=== PATIENT | male | born 1955 | race Caucasian/White ===

== ENCOUNTER 2016-06-17 09:37 | Observation (INO) | payer OTHER ==
[~2016-06-17] VITALS: Ht 188 cm; Wt 109.9 kg
[2016-06-17 11:10] LABS: HEMOGLOBIN 14.9 gm/dl (14.0-17.5); RED BLOOD COUNT 5.14 M/UL (4.20-5.50); WHITE BLOOD COUNT 4.3 K/UL (4.5-11.0)
[2016-06-17 11:24] LABS: BUN/CREATININE RATIO 14 (0-10)
[2016-06-17] MEDS ORDERED: CLARITIN10 M2 PO (19:15)
[2016-06-17] MEDS ORDERED: LISINOPRIL20 MG PO (19:15)
[2016-06-17] MEDS ORDERED: FISH OIL 1,0001 EACH PO (19:16)
[2016-06-17] MEDS ORDERED: MULTIVITAMINS1 EAC1 PO (19:17)
[2016-06-17] MEDS ORDERED: SAW PALMETTO PO (19:18)
[2016-06-17] MEDS ORDERED: GARLIC1 EAC1 PO (19:18)
[2016-06-17] MEDS ORDERED: ASPIR 8181 MG PO (19:18)
[2016-06-18 01:51] LABS: RED BLOOD COUNT 5.07 M/UL (4.20-5.50); WHITE BLOOD COUNT 3.8 K/UL (4.5-11.0)
[2016-06-18 02:10] LABS: BUN/CREATININE RATIO 13 (0-10)
[2016-06-18] MEDS ORDERED: TAMIFLU75 MG PO (14:06)
[2016-06-18] MEDS ORDERED: TYLENOL 325MG325 MG PO (14:07)
== END 2016-06-18 14:35 | disposition home or self-care (01) ==
LOC: ER1 09:37 → ZEROF 16:00 → MED SURG 4 19:24
PROVIDERS: Emergency Medicine; ADMIT Internal Medicine Infectious Disease
DX: J10.1 Influenza due to other identified influenza virus with other respiratory manifestations (principal); R55 Syncope and collapse; I10 Essential (primary) hypertension; D69.6 Thrombocytopenia, unspecified; I77.819 Aortic ectasia, unspecified site; Z79.82 Long term (current) use of aspirin; Z79.899 Other long term (current) drug therapy; Z82.49 Family history of ischemic heart disease and other diseases of the circulatory system; Z81.8 Family history of other mental and behavioral disorders
CPT/HCPCS: ECHO; 36415; 70450; 71010; 80048; 80053; 80061; 81001; 82550; 82553; 83605; 83690; 83735; 83880; 84484; 85025; 85610; 85730; 87040; 87081; 87086; 87880; 93005; 93306; 99285; G0378; J7030

== ENCOUNTER → 2016-08-08 | Outpatient (CLI) | payer OTHER ==
[~2016-08-08] MED LIST: ASPIR 8181 MG PO; CLARITIN10 M2 PO; FISH OIL 1,0001 EACH PO; GARLIC1 EAC1 PO; LISINOPRIL20 MG PO; MULTIVITAMINS1 EAC1 PO; SAW PALMETTO PO; TAMIFLU75 MG PO; TYLENOL 325MG325 MG PO
== END ==
LOC: HEART 5 07:36
DX: R55 Syncope and collapse (principal); R07.9 Chest pain, unspecified; I51.9 Heart disease, unspecified
CPT/HCPCS: 78452; A9502; J2785

== ENCOUNTER → 2016-08-14 | Outpatient (CLI) | payer OTHER | LOC: RT 11:53 | DX: R55 Syncope and collapse (principal) ==

== ENCOUNTER → 2020-09-09 | Outpatient (CLI) | payer OTHER | LOC: KOH-I 10:45 | DX: M48.061 Spinal stenosis, lumbar region without neurogenic claudication (principal); M51.26 Other intervertebral disc displacement, lumbar region; M43.16 Spondylolisthesis, lumbar region | CPT/HCPCS: 72148 ==

== ENCOUNTER → 2020-11-17 | Outpatient (CLI) | payer OTHER ==
[~2020-11-17] MED LIST changes: +ALL DAY PAIN R220 MG PO; +ALLERGY RELIEF10 M1 PO; +DULOXETINE HCL60 MG PO; +FISH-FLAX-BORA1 EACH PO; +HYDROCHLOROTHIA25 MG PO; -LISINOPRIL20 MG PO; +LISINOPRIL40 MG PO; +LOVASTATIN20 MG PO; +MAGNESIUM400 M2 PO; +METOPROLOL TART25 MG PO; +OMEPRAZOLE20 MG PO; +RA GLUCOSAMINE1 EAC6 PO; +ROBAXIN 750 MG750 MG PO; +SUPER MULTIVIT1 EACH PO; -TYLENOL 325MG325 MG PO; +TYLENOL EXTRA500 MG PO
[2020-11-17 09:58] LABS: HEMOGLOBIN 15.7 gm/dl (14.0-17.5); RED BLOOD COUNT 5.07 M/UL (4.20-5.50); WHITE BLOOD COUNT 5.1 K/UL (4.5-11.0)
[2020-11-17 10:12] LABS: BUN/CREATININE RATIO 20 (0-10)
== END ==
LOC: OPSV2 08:55 → EDSTATUS 09:00 → OPSV2 09:00
PROVIDERS: Orthopaedic Surgery
DX: Z01.818 Encounter for other preprocedural examination (principal); M48.061 Spinal stenosis, lumbar region without neurogenic claudication; I10 Essential (primary) hypertension; M54.16 Radiculopathy, lumbar region
CPT/HCPCS: 36415; 71046; 80048; 81001; 85025; 87081; 93005

== ENCOUNTER → 2020-11-23 | Outpatient (CLI) | payer OTHER | LOC: HEART 5 09:00 → ECHO 13:00 | DX: I20.9 Angina pectoris, unspecified (principal); R06.02 Shortness of breath; I08.3 Combined rheumatic disorders of mitral, aortic and tricuspid valves | CPT/HCPCS: ECHO; 78452; 93306; A9502; J2785 ==

== ENCOUNTER → 2020-12-15 | Outpatient (CLI) | payer OTHER | LOC: KOH-I 08:11 | DX: Z01.818 Encounter for other preprocedural examination (principal); M54.16 Radiculopathy, lumbar region; M54.17 Radiculopathy, lumbosacral region | CPT/HCPCS: 72131 ==

== ENCOUNTER → 2021-02-02 | Outpatient (CLI) | payer OTHER ==
[~2021-02-02] MED LIST changes: +CHELATED ZINC PO; +CRESTOR20 MG PO; +FLAXSEED1000 MG PO; +IBUPROFEN200 MG PO; +ISOSORBIDE MONO30 MG PO; +MAGNESIUM400 MG PO; +[UNRECOGNIZED DRUG - OTHER] PO
[2021-02-02 09:35] LABS: HEMOGLOBIN 15.5 gm/dl (14.0-17.5); RED BLOOD COUNT 5.17 M/UL (4.20-5.50); WHITE BLOOD COUNT 4.6 K/UL (4.5-11.0)
[2021-02-02 10:23] LABS: BUN/CREATININE RATIO 18 (0-10)
== END ==
LOC: OPSV2 08:00 → EDSTATUS 08:00 → OPSV2 08:17
PROVIDERS: Orthopaedic Surgery
DX: Z01.818 Encounter for other preprocedural examination (principal); M48.061 Spinal stenosis, lumbar region without neurogenic claudication; M47.816 Spondylosis without myelopathy or radiculopathy, lumbar region; I10 Essential (primary) hypertension; E78.00 Pure hypercholesterolemia, unspecified; Z87.891 Personal history of nicotine dependence
CPT/HCPCS: 36415; 71046; 80048; 81001; 85025

== ENCOUNTER 2021-02-15 07:25 | Inpatient (IN) | payer OTHER ==
[~2021-02-15] VITALS: Ht 188 cm; Wt 111.1 kg
[2021-02-15 14:20] LABS: RED BLOOD COUNT 4.89 M/UL (4.20-5.50); WHITE BLOOD COUNT 6.9 K/UL (4.5-11.0)
[2021-02-15 19:33] LABS: HEMOGLOBIN 13.1 gm/dl (14.0-17.5)
[2021-02-15 19:39] LABS: RED BLOOD COUNT 4.4 M/UL (4.20-5.50); WHITE BLOOD COUNT 16.3 K/UL (4.5-11.0)
[2021-02-15 20:00] LABS: BUN/CREATININE RATIO 19 (0-10)
[2021-02-15 23:10] LABS: HEMOGLOBIN 12.8 gm/dl (14.0-17.5); RED BLOOD COUNT 4.33 M/UL (4.20-5.50); WHITE BLOOD COUNT 13.2 K/UL (4.5-11.0)
[2021-02-15 23:31] LABS: BUN/CREATININE RATIO 22 (0-10)
[2021-02-16 06:15] LABS: HEMOGLOBIN 11.8 gm/dl (14.0-17.5); RED BLOOD COUNT 3.99 M/UL (4.20-5.50)
[2021-02-16 06:17] LABS: WHITE BLOOD COUNT 9.7 K/UL (4.5-11.0)
[2021-02-16 06:31] LABS: BUN/CREATININE RATIO 21 (0-10)
[2021-02-17 05:51] LABS: HEMOGLOBIN 11.7 gm/dl (14.0-17.5); RED BLOOD COUNT 3.95 M/UL (4.20-5.50); WHITE BLOOD COUNT 11.3 K/UL (4.5-11.0)
[2021-02-17 06:26] LABS: BUN/CREATININE RATIO 13 (0-10)
--- NOTE | 2021-02-18 19:37 | NUR ---
PT REFUSED TO SIT ON EDGE OF BED, SIT IN CHAIR, OR AMBULATE WITH NURSING STAFF. ATTEMPT X2.
[2021-02-20 10:26] LABS: HEMOGLOBIN 12.4 gm/dl (14.0-17.5); RED BLOOD COUNT 4.2 M/UL (4.20-5.50); WHITE BLOOD COUNT 7.7 K/UL (4.5-11.0)
[2021-02-20 10:47] LABS: BUN/CREATININE RATIO 23 (0-10)
--- NOTE | 2021-02-20 14:03 | NUR ---
1320 PT HERE PT AMBULATED DOWN [place] WITH WALKER AND ASSIST OF 2
--- NOTE | 2021-02-20 14:03 | NUR ---
1045 PT NOTIFIED OF KIRBY THOMAS
[2021-02-21 06:46] LABS: BUN/CREATININE RATIO 18 (0-10)
[2021-02-21 12:59] LABS: BUN/CREATININE RATIO 22 (0-10)
--- NOTE | 2021-02-21 15:45 | NUR ---
1300 walked pt to bathroom attempted to ambulate out in [place] pt declines says that he feels like hes going to pass out
--- NOTE | 2021-02-21 18:15 | NUR ---
1800 PT UP AMB IN [place] WITH WALKER AND 2 ASSIST
[2021-02-22 08:30] LABS: BUN/CREATININE RATIO 18 (0-10)
== END 2021-02-22 13:14 | disposition home or self-care (01) | DRG 460 ==
LOC: OR 07:25 → M/S 20:44 → OR 21:00 → M/S 02-20 15:12 → OR 02-20 15:12 → M/S 02-20 15:17 → OR 02-20 15:17 → M/S 02-22 13:14
PROVIDERS: Internal Medicine Nephrology; Orthopaedic Surgery; ADMIT Internal Medicine Infectious Disease
PROC: 0SB20ZZ Excision of Lumbar Vertebral Disc, Open Approach (ICD-10-PCS; 2021-02-15)
PROC: 0SB40ZZ Excision of Lumbosacral Disc, Open Approach (ICD-10-PCS; 2021-02-15)
PROC: 01NB0ZZ Release Lumbar Nerve, Open Approach (ICD-10-PCS; 2021-02-15)
PROC: 01N80ZZ Release Thoracic Nerve, Open Approach (ICD-10-PCS; 2021-02-15)
PROC: 4A11X4G Monitoring of Peripheral Nervous Electrical Activity, Intraoperative, External Approach (ICD-10-PCS; 2021-02-15)
PROC: 0SG0071 Fusion of Lumbar Vertebral Joint with Autologous Tissue Substitute, Posterior Approach, Posterior Column, Open Approach (ICD-10-PCS; principal; 2021-02-15 09:30)
PROC: 0SG3071 Fusion of Lumbosacral Joint with Autologous Tissue Substitute, Posterior Approach, Posterior Column, Open Approach (ICD-10-PCS; 2021-02-15 09:30)
DX: M48.061 Spinal stenosis, lumbar region without neurogenic claudication (principal); E87.1 Hypo-osmolality and hyponatremia; Z20.822 Contact with and (suspected) exposure to COVID-19; M47.26 Other spondylosis with radiculopathy, lumbar region; I25.10 Atherosclerotic heart disease of native coronary artery without angina pectoris; K21.9 Gastro-esophageal reflux disease without esophagitis; G62.9 Polyneuropathy, unspecified; I11.9 Hypertensive heart disease without heart failure; K59.00 Constipation, unspecified; M54.9 Dorsalgia, unspecified; G89.29 Other chronic pain; E78.5 Hyperlipidemia, unspecified; G47.33 Obstructive sleep apnea (adult) (pediatric); R26.89 Other abnormalities of gait and mobility; T50.2X5A Adverse effect of carbonic-anhydrase inhibitors, benzothiadiazides and other diuretics, initial encounter; E87.6 Hypokalemia; Z87.891 Personal history of nicotine dependence; Z79.899 Other long term (current) drug therapy; Z79.82 Long term (current) use of aspirin; Z82.49 Family history of ischemic heart disease and other diseases of the circulatory system; Z98.890 Other specified postprocedural states; Z82.3 Family history of stroke
CPT/HCPCS: 36415; 72100; 72110; 74018; 76000; 80048; 80053; 82436; 82533; 82962; 83690; 83935; 84133; 84300; 84443; 85025; 85027; 97116-GP-CQ; 97161; 97165; 97530-GP-CQ; 97535; C1713; C1762; C1781; J0690; J1040; J1170; J1644; J2250; J2370; J2405; J3010; J3370; J7030; J7040; J7120; P9045

== ENCOUNTER 2021-05-25 18:15 | Emergency (ER) | payer OTHER ==
[2021-05-25 18:56] LABS: HEMOGLOBIN 11.9 gm/dl (14.0-17.5); RED BLOOD COUNT 4.73 M/UL (4.20-5.50); WHITE BLOOD COUNT 8.2 K/UL (4.5-11.0)
[2021-05-25 19:16] LABS: BUN/CREATININE RATIO 20 (0-10)
== END 2021-05-25 22:30 | disposition short-term general hospital (02) ==
LOC: ER1 18:15
PROVIDERS: Emergency Medicine
DX: S06.0X9A Concussion with loss of consciousness of unspecified duration, initial encounter (principal); S06.319A Contusion and laceration of right cerebrum with loss of consciousness of unspecified duration, initial encounter; E11.9 Type 2 diabetes mellitus without complications; I10 Essential (primary) hypertension; V29.9XXA Motorcycle rider (driver) (passenger) injured in unspecified traffic accident, initial encounter; Y93.I9 Activity, other involving external motion; Y92.410 Unspecified street and highway as the place of occurrence of the external cause
CPT/HCPCS: 70450; 71045; 71260; 72125; 80053; 81001; 83690; 85025; 85610; 85730; 90471; 90715; 99285; G0480; J3010; Q9967

== ENCOUNTER → 2021-08-30 | Outpatient (CLI) | payer OTHER | LOC: KOH-I 13:28 | DX: J98.59 Other diseases of mediastinum, not elsewhere classified (principal); R59.0 Localized enlarged lymph nodes | CPT/HCPCS: 71250 ==